=== PATIENT | male | born 1980 | race African-American/Black ===

== ENCOUNTER 2023-04-16 15:49 | Emergency (ER) | payer OTHER, MEDICARE ==
[~2023-04-16] VITALS: Ht 182.9 cm; Wt 108.0 kg
[2023-04-16 16:07] VITALS: O2SAT 96
[2023-04-16] MEDS ORDERED: MAGN296S8 MT (20:06)
[2023-04-16] MEDS ORDERED: POLY17PO3 MT (20:06)
[2023-04-16 20:27] VITALS: BP 132/74; PULSE 82; RESP 18; TEMP 98.6
== END 2023-04-16 20:28 | disposition home or self-care (01) ==
LOC: ER 16:36
DX: K59.00 Constipation, unspecified (principal); I10 Essential (primary) hypertension
CPT/HCPCS: 99282